=== PATIENT | female | born 1995 | race Caucasian/White ===

== ENCOUNTER → 2016-09-10 | Outpatient (CLI) | payer BC, MEDICAID ==
[~2016-09-10] MED LIST: CLARITIN DPS10 MG PO; COLACE-DPS100 MG PO; DERMOPLAST SPRA56 GM TP; LAN-O-SOOTHE7 GM TP; MOTRIN-DPS800 MG PO; NIPPLECREAM TP; TUCKS1 EACH TP; TYLENOL EXTRA500 M1 PO
== END | disposition home or self-care (01) ==
LOC: RAD.S 16:11
DX: Z36 Encounter for antenatal screening of mother (principal); Z3A.21 21 weeks gestation of pregnancy

== ENCOUNTER 2016-09-30 18:00 | Outpatient (CLI) | payer BC, MEDICAID ==
[2017-01-24] MEDS ORDERED: COLACE-DPS100 MG PO (12:54)
[2017-01-24] MEDS ORDERED: MOTRIN-DPS800 MG PO (12:54)
[2017-01-24] MEDS ORDERED: TYLENOL EXTRA500 M1 PO (12:55)
[2017-01-24] MEDS ORDERED: NIPPLECREAM TP (12:55)
[2017-01-24] MEDS ORDERED: DERMOPLAST SPRA56 GM TP (12:55)
[2017-01-24] MEDS ORDERED: LAN-O-SOOTHE7 GM TP (12:57)
[2017-01-24] MEDS ORDERED: TUCKS1 EACH TP (13:06)
[2017-01-24] MEDS ORDERED: CLARITIN DPS10 MG PO (13:07)
== END 2016-09-30 20:00 | disposition home or self-care (01) ==
LOC: 2LDRP 18:00 → BC 18:00
DX: O36.8120 Decreased fetal movements, second trimester, not applicable or unspecified (principal); O46.92 Antepartum hemorrhage, unspecified, second trimester; Z3A.24 24 weeks gestation of pregnancy

== ENCOUNTER 2016-10-11 23:25 | Outpatient (CLI) | payer BC, MEDICAID ==
[2017-01-24] MEDS ORDERED: COLACE-DPS100 MG PO (12:54)
[2017-01-24] MEDS ORDERED: MOTRIN-DPS800 MG PO (12:54)
[2017-01-24] MEDS ORDERED: DERMOPLAST SPRA56 GM TP (12:55)
[2017-01-24] MEDS ORDERED: TYLENOL EXTRA500 M1 PO (12:55)
[2017-01-24] MEDS ORDERED: NIPPLECREAM TP (12:55)
[2017-01-24] MEDS ORDERED: LAN-O-SOOTHE7 GM TP (12:57)
[2017-01-24] MEDS ORDERED: TUCKS1 EACH TP (13:06)
[2017-01-24] MEDS ORDERED: CLARITIN DPS10 MG PO (13:07)
== END 2016-10-12 02:25 | disposition home or self-care (01) ==
LOC: 2LDRP 23:25 → BC 23:25
DX: O99.89 Other specified diseases and conditions complicating pregnancy, childbirth and the puerperium (principal); R10.30 Lower abdominal pain, unspecified; Z3A.25 25 weeks gestation of pregnancy

== ENCOUNTER 2016-11-04 23:30 | Outpatient (CLI) | payer BC, MEDICAID ==
[2017-01-24] MEDS ORDERED: COLACE-DPS100 MG PO (12:54)
[2017-01-24] MEDS ORDERED: MOTRIN-DPS800 MG PO (12:54)
[2017-01-24] MEDS ORDERED: DERMOPLAST SPRA56 GM TP (12:55)
[2017-01-24] MEDS ORDERED: TYLENOL EXTRA500 M1 PO (12:55)
[2017-01-24] MEDS ORDERED: NIPPLECREAM TP (12:55)
[2017-01-24] MEDS ORDERED: LAN-O-SOOTHE7 GM TP (12:57)
[2017-01-24] MEDS ORDERED: TUCKS1 EACH TP (13:06)
[2017-01-24] MEDS ORDERED: CLARITIN DPS10 MG PO (13:07)
== END 2016-11-05 01:10 | disposition home or self-care (01) ==
LOC: BC 23:30 → 2LDRP 23:30 → BC 11-05 01:10
DX: O99.89 Other specified diseases and conditions complicating pregnancy, childbirth and the puerperium (principal); R10.9 Unspecified abdominal pain; Z3A.29 29 weeks gestation of pregnancy

== ENCOUNTER 2016-12-06 03:10 | Outpatient (CLI) | payer BC, MEDICAID ==
[2017-01-24] MEDS ORDERED: COLACE-DPS100 MG PO (12:54)
[2017-01-24] MEDS ORDERED: MOTRIN-DPS800 MG PO (12:54)
[2017-01-24] MEDS ORDERED: DERMOPLAST SPRA56 GM TP (12:55)
[2017-01-24] MEDS ORDERED: TYLENOL EXTRA500 M1 PO (12:55)
[2017-01-24] MEDS ORDERED: NIPPLECREAM TP (12:55)
[2017-01-24] MEDS ORDERED: LAN-O-SOOTHE7 GM TP (12:57)
[2017-01-24] MEDS ORDERED: TUCKS1 EACH TP (13:06)
[2017-01-24] MEDS ORDERED: CLARITIN DPS10 MG PO (13:07)
== END 2016-12-06 04:45 | disposition home or self-care (01) ==
LOC: 2LDRP 03:10 → BC 03:10
DX: O36.8130 Decreased fetal movements, third trimester, not applicable or unspecified (principal); Z3A.33 33 weeks gestation of pregnancy